=== PATIENT | male | born 1980 | race Caucasian/White ===

== ENCOUNTER 2017-01-12 12:27 | Emergency (ER) | payer SELFPAY ==
[2017-01-12] MEDS ORDERED: TORAdol 30 mg Injection IV ONE (13:00)
[2017-01-12] MEDS ORDERED: CEFAZOLIN 2 GM-D5W BAG** 2 GM/50 ML ML IV STA (13:01)
[2017-01-12] MEDS ORDERED: BACTRIM DS TABLET PO ONE ×2 (13:02→13:11)
[2017-01-12] MEDS ORDERED: Adacel Vial IM ONE ×2 (13:02→13:12)
--- NOTE | 2017-01-12 13:07 | ERPHSYRPT ---
- History of Present Illness Time Seen by Provider: 01/12/17 12:38 Source: patient Patient Subjective Stated Complaint: patient has pain and swelling on left ear as well as kneck Triage Nursing Assessment: patient alert and oriented x3, gait is steady, ambulates well, skin warm dry and intact, left ear is swollen canal swollen kneck has swollen nodule under left ear and swelling comntinues down jawline, right side of face knec kadn ear are all within normal limits, states hurts to swallow, pulses equal bilateral radius, no other abnormalities noted Physician History: CC: left ear pain Hx: 36 y/o patient of Dr Alex Baum. He had remote ear piercings left sided not used in recent past. He states he had fever and sweats last night. Awoke this AM with pain and swelling and mild drng in the left ear lobe. Not sure of any injury. No drng from canal. Pain moderate. He drove self here. No other skin lesions or swellings except a small burn left hand. Timing/Duration: today Quality: painful Severity: moderate Allergies/Adverse Reactions: No Known Drug Allergies Allergy (Unverified 10/12/13 15:08) Hx Tetanus, Diphtheria Vaccination/Date Given: Yes Hx Influenza Vaccination/Date Given: No Hx Pneumococcal Vaccination/Date Given: No Immunizations Up to Date: Yes - Review of Systems Constitutional: Fever, Chills, Malaise Eyes: No Symptoms Ears, Nose, & Throat: Ear Pain Respiratory: No Cough, No Dyspnea Cardiac: No Chest Pain Abdominal/Gastrointestinal: No Abdominal Pain Skin: Skin Lesions (left ear), No Rash Neurological: No Focal Weakness, No Parasthesia All Other Systems: Reviewed and Negative - Past Medical History Pertinent Past Medical History: No Neurological History: No Pertinent History ENT History: No Pertinent History Cardiac History: No Pertinent History Respiratory History: No Pertinent History Endocrine Medical History: No Pertinent History Musculoskeletal History: Other History: No Pertinent History Psycho-Social History: No Pertinent History - Past Surgical History Past Surgical History: Yes Neuro Surgical History: No Pertinent History Respiratory: No Pertinent History Gastrointestinal: No Pertinent History Genitourinary: No Pertinent History Male Surgical History: Vasectomy Other Surgical History: cyst removed from toe in 1995 - Social History Smoking Status: Former smoker Exposure to second hand smoke: No Drug Use: none Patient Lives Alone: No - Nursing Vital Signs Nursing Vital Signs: Initial Vital Signs Temperature 98.1 F 01/12/17 12:27 Pulse Rate 82 01/12/17 12:27 Respiratory Rate 20 01/12/17 12:27 Blood Pressure 144/82 01/12/17 12:27 O2 Sat by Pulse Oximetry 97 01/12/17 12:27 Pain Scale Pain Intensity 6 - Physical Exam General Appearance: alert Eye Exam: PERRL/EOMI Ears, Nose, Throat Exam: moist mucous membranes, other (left ear lobe is tender , red, and swollen with mild drng from prior piercings. No canal drng. Some pain with movement of pinna. There is left cervical lymphadenitis. ) Neck Exam: supple, lymphadenopathy Respiratory Exam: normal breath sounds, lungs clear Cardiovascular Exam: regular rate/rhythm, No murmur Gastrointestinal/Abdomen Exam: soft, No tenderness, No distention Male Genitalia Exam: normal genitalia Back Exam: normal inspection Extremity Exam: normal inspection, normal range of motion Neurologic Exam: alert, oriented x 3, cooperative, sensation nml, No motor deficits Skin Exam: warm, dry SpO2 Interpretation: normal SpO2: 97 Oxygen Delivery: Room Air - Course Nursing assessment & vital signs reviewed: Yes Ordered Tests: Active Orders 24 hr Category Date Time Status BMP Stat Lab 01/12/17 13:05 Completed CBC W DIFF Stat Lab 01/12/17 13:05 Completed Lactic Acid Stat Lab 01/12/17 13:13 Completed Manual Differential NC Stat Lab 01/12/17 13:05 Completed Medication Summary Discontinued Medications Generic Name Dose Route Start Last Admin Trade Name Freq PRN Reason Stop Dose Admin Diphtheria/Tetanus/Acell Pertussis 0.5 ml 01/12/17 13:02 01/12/17 13:18 Adacel Vial IM 01/12/17 13:03 0.5 ml .ONCE ONE Administration Diphtheria/Tetanus/Acell Pertussis Confirm 01/12/17 13:12 Adacel Vial Administered 01/12/17 13:13 Dose 0.5 ml IM .STK-MED ONE Cefazolin Sodium/Dextrose 2 gm in 50 mls @ 100 mls/hr 01/12/17 13:01 13:18 Cefazolin 2 Gm-D5w Bag IV 01/12/17 13:30 100 mls/hr STAT STA Administration Ketorolac Tromethamine 30 mg 01/12/17 13:00 01/12/17 13:18 Toradol 30 Mg Injection IV 01/12/17 13:01 30 mg STAT ONE Administration Ketorolac Tromethamine Confirm 01/12/17 13:11 Toradol 30 Mg Injection Administered 01/12/17 13:12 Dose 30 mg .ROUTE .STK-MED ONE Trimethoprim/Sulfamethoxazole 1 tab 01/12/17 13:02 01/12/17 13:18 Bactrim Ds Tablet PO 01/12/17 13:03 1 tab STAT ONE Administration Trimethoprim/Sulfamethoxazole Confirm 01/12/17 13:11 Bactrim Ds Tablet Administered 01/12/17 13:12 Dose 1 tab PO .STK-MED ONE Lab/Rad Data: Laboratory Result Diagrams 01/12/17 13:05 01/12/17 13:05 Laboratory Results 01/12/17 01/12/17 01/12/17 Range/Units 13:13 13:05 13:05 WBC 11.4 H (4.0-10.5) K/mm3 RBC 5.19 (4.1-5.6) M/mm3 Hgb 15.8 (12.5-18.0) gm/dl Hct 44.7 (42-50) % MCV 86.1 (78-100) fl MCH 30.4 (26-32) pg MCHC 35.3 (32-36) g/dl RDW 12.5 (11.5-14.0) % Plt Count 133 L (150-450) K/mm3 MPV 12.6 H (6-9.5) fl Sodium 140 (136-145) mEq/L Potassium 3.8 (3.5-5.1) mEq/L Chloride 103 (98-107) mEq/L Carbon Dioxide 24.7 (21-32) mEq/L Anion Gap 16.4 H (5-15) MEQ/L BUN 13 (9-20) mg/dL Creatinine 0.85 (0.55-1.30) mg/dl Estimated GFR > 60 ML/MIN Glucose 123 H (70-110) MG/DL Lactic Acid 0.8 (0.4-2.0) Calcium 9.6 (8.5-10.1) mg/dL - Departure Time of Disposition: 13:40 Departure Disposition: Home Clinical Impression: Cellulitis of left earlobe Condition: Stable Critical Care Time: No Referrals: DOCTOR,NO FAMILY [NON-STAFF PHY W/O PRIVILEGES] - Instructions: Cellulitis -- Adult, Ear Pain Additional Instructions: Warm compresses to ear lobe 4 times a day. Rx keflex. Rx bactrim. Rx motrin=ibuprofen. Return for worsening. You need to follow up with a family doctor next week. Prescriptions: Hydroxyzine HCl 1 tab PO Q6H PRN PRN #14 tablet PRN Reason: sleep Ibuprofen 600 mg PO Q6H PRN PRN #24 tablet PRN Reason: Pain Cephalexin Mh 500 mg [Keflex 500 mg] 1 cap PO QID #40 capsule Smz/Tmp Ds Tablet [Bactrim Ds Tablet] 1 udtab PO BID #20 tablet
[2017-01-12] MEDS ORDERED: TORAdol 30 mg Injection ONE (13:11)
[2017-01-12 13:18] LABS: Mean Cell Volume 86.1 fl (78-100); Mean Corpuscular Hemoglobin 30.4 pg (26-32); Mean Platelet Volume 12.6 fl (6-9.5); Platelet Count 133 K/mm3 (150-450); Red Blood Count 5.19 M/mm3 (4.1-5.6); Red Cell Distribution Width 12.5 % (11.5-14.0); White Blood Count 11.4 K/mm3 (4.0-10.5)
[2017-01-12 13:28] LABS: ANION GAP 16.4 MEQ/L (5-15); BLOOD UREA NITROGEN 13 mg/dL (9-20); CHLORIDE 103 mEq/L (98-107); Carbon Dioxide 24.7 mEq/L (21-32); Glucose 123 MG/DL (70-110); Potassium 3.8 mEq/L (3.5-5.1); SODIUM 140 mEq/L (136-145)
[2017-01-12 13:46] LABS: Platelet Estimate NORMAL (NORMAL); Total Cells Counted 100
[2017-01-12 13:50] VITALS: BP 142/96
[2017-01-12 14:06] VITALS: PULSE 76; O2SAT 98
== END 2017-01-12 14:20 | disposition home or self-care (01) ==
LOC: ED 12:27
DX: H60.12 Cellulitis of left external ear (principal); M54.2 Cervicalgia; H92.02 Otalgia, left ear
CPT/HCPCS: 36415; 80048; 83605; 85025; 90471; 90715; 96365; 96374; 99284; J0690; J1885; A9270-GY

== ENCOUNTER 2018-06-23 18:42 | Emergency (ER) | payer OTHER, MEDICAID ==
--- NOTE | 2018-06-23 19:11 | ERPHSYRPT ---
- History of Present Illness Time Seen by Provider: 06/23/18 18:59 Historian: patient Exam Limitations: no limitations Patient Subjective Stated Complaint: feels like his chest is tight and hard to breath Triage Nursing Assessment: Pt brought in to ER due to having tightness in his chest and being short of breath, tachycardic, lung sounds clear, S1-S2 sounds heard, pulses strong, afebrile, headache Physician History: Pt started c/o bifrontal headaches 4-5 days ago, it started when he was arrested. He started c/o chest pressure few hours ago, developed shortness of breath, denies productive cough, sore throat, cold symptoms, fever, chills, nausea, vomiting, however he vomited once 5 days ago, when it started. Timing/Duration: day(s) (5) Activities at Onset: none Quality: pressure Location: central Chest Pain Radiation: no radiation Severity of Pain-Max: mild Severity of Pain-Current: mild Modifying Factors: Improves With: nothing Associated Symptoms: palpitations, shortness of breath Prior Chest Pain/Cardiac Workup: no prior chest pain Nitro Today/Relief: no nitro taken today Aspirin Treatment Today: no aspirin today Allergies/Adverse Reactions: No Known Drug Allergies Allergy (Verified 06/23/18 18:59) Hx Tetanus, Diphtheria Vaccination/Date Given: Yes Hx Influenza Vaccination/Date Given: No Hx Pneumococcal Vaccination/Date Given: No - Review of Systems Constitutional: No Symptoms Eyes: No Symptoms Ears, Nose, & Throat: No Symptoms Respiratory: Dyspnea Cardiac: Chest Pain, Palpitations Abdominal/Gastrointestinal: No Symptoms Genitourinary Symptoms: No Symptoms Musculoskeletal: No Symptoms Skin: No Symptoms Neurological: Headache All Other Systems: Reviewed and Negative - Past Medical History Pertinent Past Medical History: No Neurological History: No Pertinent History ENT History: No Pertinent History Cardiac History: No Pertinent History Respiratory History: No Pertinent History Endocrine Medical History: No Pertinent History Musculoskeletal History: Other History: No Pertinent History Psycho-Social History: No Pertinent History - Past Surgical History Past Surgical History: Yes Neuro Surgical History: No Pertinent History Respiratory: No Pertinent History Gastrointestinal: No Pertinent History Genitourinary: No Pertinent History Male Surgical History: Vasectomy Other Surgical History: cyst removed from toe in 1995 - Social History Smoking Status: Never smoker Exposure to second hand smoke: No Drug Use: none Patient Lives Alone: No - Nursing Vital Signs Nursing Vital Signs: Initial Vital Signs Temperature 98.1 F 06/23/18 18:47 Pulse Rate 119 H 06/23/18 18:47 Respiratory Rate 14 06/23/18 18:47 Blood Pressure 158/101 06/23/18 18:47 O2 Sat by Pulse Oximetry 100 06/23/18 18:47 Pain Scale Pain Intensity 5 - Physical Exam General Appearance: no apparent distress Eye Exam: PERRL/EOMI, eyes nml inspection Ears, Nose, Throat Exam: normal ENT inspection, pharynx normal, moist mucous membranes Neck Exam: normal inspection, non-tender, supple, No carotid bruit, No JVD Respiratory Exam: normal breath sounds, lungs clear, airway intact, No chest tenderness, No respiratory distress Cardiovascular Exam: normal heart sounds, normal peripheral pulses, tachycardia , No murmur Gastrointestinal/Abdomen Exam: soft, normal bowel sounds, No tenderness Back Exam: normal inspection, No CVA tenderness Extremity Exam: normal inspection, No calf tenderness, No meredith's sign Neurologic Exam: alert, oriented x 3, cooperative, normal mood/affect Skin Exam: normal color, warm, dry, No rash Lymphatic Exam: No adenopathy SpO2 Interpretation: normal SpO2: 100 O2 Delivery: Room Air - Course Nursing assessment & vital signs reviewed: Yes EKG Interpreted by Me: RATE (123/min), NORMAL AXIS, NORMAL QRS, Non-specific ST Changes, Other (repeat Ek:47 PM: sinus tachycardia, unchanged.) - Radiology Exams Chest X-ray Interpretation: Interpreted by me, Negative, Other (calcified right hilar lymph nodes) - CT Exams Head CT Interpretation: Negative, Tele-radiologist Report Ordered Tests: Active Orders 24 hr Category Date Time Status [employer] STAT Care 06/23/18 19:05 Active EKG-ER Only STAT Care 06/23/18 19:04 Active EKG-ER Only STAT Care 06/23/18 21:41 Active IV Insertion STAT Care 06/23/18 19:04 Active CHEST 2 VIEWS (PA AND LAT) Stat Exams 06/23/18 19:05 Taken HEAD WITHOUT CONTRAST [CT] Stat Exams 06/23/18 19:12 Taken CBC W DIFF Stat Lab 06/23/18 19:22 Completed CK-Creatinine Phosphokinase Stat Lab 06/23/18 19:22 Completed CMP Stat Lab 06/23/18 19:22 Completed D-DIMER QUANTITATION Stat Lab 06/23/18 19:22 Completed LIPASE Stat Lab 06/23/18 19:22 Completed MAGNESIUM Stat Lab 06/23/18 19:22 Completed NT PRO BNP Stat Lab 06/23/18 19:22 Completed PROTIME WITH INR Stat Lab 06/23/18 19:22 Completed PTT Stat Lab 06/23/18 19:22 Completed TROPONIN Q3H Lab 06/23/18 19:22 Completed TROPONIN Q3H Lab 06/23/18 22:00 Completed TROPONIN Q3H Lab 06/24/18 01:15 Ordered TROPONIN Q3H Lab 06/24/18 04:15 Ordered TROPONIN Q3H Lab 06/24/18 07:15 Ordered TSH [TSH, 3RD Generation] Stat Lab 06/23/18 19:22 Completed UA W/RFX UR CULTURE Stat Lab 06/23/18 19:22 Completed Urine Triage Profile Stat Lab 06/23/18 19:22 Completed Medication Summary Discontinued Medications Generic Name Dose Route Start Last Admin Trade Name Freq PRN Reason Stop Dose Admin Diphenhydramine HCl 25 mg 06/23/18 20:35 06/23/18 20:43 Benadryl 50 Mg/Ml IV 06/23/18 20:36 25 mg STAT ONE Administration Diphenhydramine HCl Confirm 06/23/18 20:41 Benadryl 50 Mg/Ml Administered 06/23/18 20:42 Dose 50 mg .ROUTE .STK-MED ONE Sodium Chloride 1,000 mls @ 999 mls/hr 06/23/18 19:04 06/23/18 22:38 Sodium Chloride 0.9% 1000 Ml IV 06/23/18 20:04 Infused .Q1H1M STA Infusion Sodium Chloride Confirm 06/23/18 19:46 Sodium Chloride 0.9% 1000 Ml Administered 06/23/18 19:47 Dose 1,000 mls @ ud .ROUTE .STK-MED ONE Ketorolac Tromethamine 30 mg 06/23/18 20:35 06/23/18 20:42 Toradol 30 Mg Injection IV 06/23/18 20:36 30 mg STAT ONE Administration Ketorolac Tromethamine Confirm 06/23/18 20:40 Toradol 30 Mg Injection Administered 06/23/18 20:41 Dose 30 mg .ROUTE .STK-MED ONE Labetalol HCl 20 mg 06/23/18 21:43 06/23/18 21:47 Trandate 20 Mg/5 Ml Syringe IV 06/23/18 21:44 20 mg STAT ONE Administration Labetalol HCl Confirm 06/23/18 21:46 Trandate 20 Mg/5 Ml Syringe Administered 06/23/18 21:47 Dose 20 mg IV .STK-MED ONE Lorazepam 1 mg 06/23/18 19:06 06/23/18 19:47 Ativan 2 Mg/1 Ml Vial IV 06/23/18 19:07 1 mg STAT ONE Administration Lorazepam Confirm 06/23/18 19:46 Ativan 2 Mg/1 Ml Vial Administered 06/23/18 19:47 Dose 2 mg .ROUTE .STK-MED ONE Lab/Rad Data: Laboratory Result Diagrams 06/23/18 19:22 06/23/18 19:22 Laboratory Results 06/23/18 06/23/18 06/23/18 Range/Units 22:00 19:22 19:22 WBC (4.0-10.5) K/mm3 RBC (4.1-5.6) M/mm3 Hgb (12.5-18.0) gm/dl Hct (42-50) % MCV (78-100) fl MCH (26-32) pg MCHC (32-36) g/dl RDW (11.5-14.0) % Plt Count (150-450) K/mm3 MPV (6-9.5) fl Gran % (36.0-66.0) % Eos # (Auto) (0-0.5) Absolute Lymphs (auto) (1.0-4.6) Absolute Monos (auto) (0.0-1.3) Lymphocytes % (24.0-44.0) % Monocytes % (0.0-12.0) % Eosinophils % (0.00-5.0) % Basophils % (0.0-0.4) % Absolute Granulocytes (1.4-6.9) Basophils # (0-0.4) PT (8.83-12.87) SECONDS INR (0.8-3.0) APTT (24.1-36.1) SECONDS D-Dimer 222 (215-500) ng/mL Sodium (137-145) mmol/L Potassium (3.5-5.1) mmol/L Chloride (98-107) mmol/L Carbon Dioxide (22-30) mmol/L Anion Gap (5-15) MEQ/L BUN (9-20) mg/dL Creatinine (0.66-1.25) mg/dL Estimated GFR ML/MIN Glucose (74-106) mg/dL Calcium (8.4-10.2) mg/dL Magnesium (1.6-2.3) mg/dL Total Bilirubin (0.2-1.3) mg/dL AST (17-59) U/L ALT (0-50) U/L Alkaline Phosphatase (38-126) U/L Creatine Kinase (55-170) U/L Troponin I < 0.012 (0.000-0.034) ng/mL NT-Pro-B Natriuret Pep (0-450) pg/mL Serum Total Protein (6.3-8.2) g/dL Albumin (3.5-5.0) g/dL Lipase (23-300) U/L TSH 3rd Generation (0.47-4.68) mIU/L Urine Color (YELLOW) Urine Appearance (CLEAR) Urine pH (5-6) Ur Specific [place] (1.005-1.025) Urine Protein (Negative) Urine Ketones (NEGATIVE) Urine Blood (0-5) Lorenzo/ul Urine Nitrite (NEGATIVE) Urine Bilirubin (NEGATIVE) Urine Urobilinogen (0-1) mg/dL Ur Leukocyte Esterase (NEGATIVE) Urine WBC (Auto) (0-5) /HPF Urine Culture Reflexed (NO) Urine Glucose (NEGATIVE) mg/dL Urine Opiates Level NEGATIVE (NEGATIVE) Ur Methadone NEGATIVE (NEGATIVE) Urine Barbiturates NEGATIVE (NEGATIVE) Ur Phencyclidine (PCP) NEGATIVE (NEGATIVE) Urine Amphetamine NEGATIVE (NEGATIVE) U Benzodiazepine Level NEGATIVE (NEGATIVE) Urine Cocaine NEGATIVE (NEGATIVE) Urine Marijuana (THC) NEGATIVE (NEGATIVE) Slides for Path Review 06/23/18 06/23/18 06/23/18 Range/Units 19:22 19:22 19:22 WBC (4.0-10.5) K/mm3 RBC (4.1-5.6) M/mm3 Hgb (12.5-18.0) gm/dl Hct (42-50) % MCV (78-100) fl MCH (26-32) pg MCHC (32-36) g/dl RDW (11.5-14.0) % Plt Count (150-450) K/mm3 MPV (6-9.5) fl Gran % (36.0-66.0) % Eos # (Auto) (0-0.5) Absolute Lymphs (auto) (1.0-4.6) Absolute Monos (auto) (0.0-1.3) Lymphocytes % (24.0-44.0) % Monocytes % (0.0-12.0) % Eosinophils % (0.00-5.0) % Basophils % (0.0-0.4) % Absolute Granulocytes (1.4-6.9) Basophils # (0-0.4) PT (8.83-12.87) SECONDS INR (0.8-3.0) APTT (24.1-36.1) SECONDS D-Dimer (215-500) ng/mL Sodium (137-145) mmol/L Potassium (3.5-5.1) mmol/L Chloride (98-107) mmol/L Carbon Dioxide (22-30) mmol/L Anion Gap (5-15) MEQ/L BUN (9-20) mg/dL Creatinine (0.66-1.25) mg/dL Estimated GFR ML/MIN Glucose (74-106) mg/dL Calcium (8.4-10.2) mg/dL Magnesium (1.6-2.3) mg/dL Total Bilirubin (0.2-1.3) mg/dL AST (17-59) U/L ALT (0-50) U/L Alkaline Phosphatase (38-126) U/L Creatine Kinase (55-170) U/L Troponin I < 0.012 (0.000-0.034) ng/mL NT-Pro-B Natriuret Pep (0-450) pg/mL Serum Total Protein (6.3-8.2) g/dL Albumin (3.5-5.0) g/dL Lipase (23-300) U/L TSH 3rd Generation 0.873 (0.47-4.68) mIU/L Urine Color YELLOW (YELLOW) Urine Appearance CLEAR (CLEAR) Urine pH 7.0 (5-6) Ur Specific [place] 1.014 (1.005-1.025) Urine Protein NEGATIVE (Negative) Urine Ketones NEGATIVE (NEGATIVE) Urine Blood NEGATIVE (0-5) Lorenzo/ul Urine Nitrite NEGATIVE (NEGATIVE) Urine Bilirubin NEGATIVE (NEGATIVE) Urine Urobilinogen 2 (0-1) mg/dL Ur Leukocyte Esterase NEGATIVE (NEGATIVE) Urine WBC (Auto) NONE (0-5) /HPF Urine Culture Reflexed NO (NO) Urine Glucose NEGATIVE (NEGATIVE) mg/dL Urine Opiates Level (NEGATIVE) Ur Methadone (NEGATIVE) Urine Barbiturates (NEGATIVE) Ur Phencyclidine (PCP) (NEGATIVE) Urine Amphetamine (NEGATIVE) U Benzodiazepine Level (NEGATIVE) Urine Cocaine (NEGATIVE) Urine Marijuana (THC) (NEGATIVE) Slides for Path Review 06/23/18 06/23/18 06/23/18 Range/Units 19:22 19:22 19:22 WBC 9.6 (4.0-10.5) K/mm3 RBC 5.19 (4.1-5.6) M/mm3 Hgb 16.2 (12.5-18.0) gm/dl Hct 46.1 (42-50) % MCV 88.8 (78-100) fl MCH 31.2 (26-32) pg MCHC 35.1 (32-36) g/dl RDW 12.8 (11.5-14.0) % Plt Count 161 (150-450) K/mm3 MPV 12.7 H (6-9.5) fl Gran % 63.0 (36.0-66.0) % Eos # (Auto) 0.07 (0-0.5) Absolute Lymphs (auto) 2.62 (1.0-4.6) Absolute Monos (auto) 0.83 (0.0-1.3) Lymphocytes % 27.4 (24.0-44.0) % Monocytes % 8.7 (0.0-12.0) % Eosinophils % 0.7 (0.00-5.0) % Basophils % 0.2 (0.0-0.4) % Absolute Granulocytes 6.02 (1.4-6.9) Basophils # 0.02 (0-0.4) PT 11.0 (8.83-12.87) SECONDS INR 0.95 (0.8-3.0) APTT 28.8 (24.1-36.1) SECONDS D-Dimer (215-500) ng/mL Sodium 141 (137-145) mmol/L Potassium 3.8 (3.5-5.1) mmol/L Chloride 105 (98-107) mmol/L Carbon Dioxide 27 (22-30) mmol/L Anion Gap 12.5 (5-15) MEQ/L BUN 9 (9-20) mg/dL Creatinine 0.86 (0.66-1.25) mg/dL Estimated GFR > 60.0 ML/MIN Glucose 111 H (74-106) mg/dL Calcium 9.9 (8.4-10.2) mg/dL Magnesium 2.0 (1.6-2.3) mg/dL Total Bilirubin 2.20 H (0.2-1.3) mg/dL AST 23 (17-59) U/L ALT 31 (0-50) U/L Alkaline Phosphatase 47 (38-126) U/L Creatine Kinase 39 L (55-170) U/L Troponin I (0.000-0.034) ng/mL NT-Pro-B Natriuret Pep 28.3 (0-450) pg/mL Serum Total Protein 7.4 (6.3-8.2) g/dL Albumin 4.4 (3.5-5.0) g/dL Lipase 169 (23-300) U/L TSH 3rd Generation (0.47-4.68) mIU/L Urine Color (YELLOW) Urine Appearance (CLEAR) Urine pH (5-6) Ur Specific [place] (1.005-1.025) Urine Protein (Negative) Urine Ketones (NEGATIVE) Urine Blood (0-5) Lorenzo/ul Urine Nitrite (NEGATIVE) Urine Bilirubin (NEGATIVE) Urine Urobilinogen (0-1) mg/dL Ur Leukocyte Esterase (NEGATIVE) Urine WBC (Auto) (0-5) /HPF Urine Culture Reflexed (NO) Urine Glucose (NEGATIVE) mg/dL Urine Opiates Level (NEGATIVE) Ur Methadone (NEGATIVE) Urine Barbiturates (NEGATIVE) Ur Phencyclidine (PCP) (NEGATIVE) Urine Amphetamine (NEGATIVE) U Benzodiazepine Level (NEGATIVE) Urine Cocaine (NEGATIVE) Urine Marijuana (THC) (NEGATIVE) Slides for Path Review YES - Progress Progress: improved Air Movement: good Progress Note: 06/23/18 22:12 Pt feels much better, second troponin is also negative, his blood pressure is 125/90, pulse: 94/min. he states, his headache and chest pressure resolved, stable, we discussed all his findings, and he will be released back to long term given Propranolol 40 mg PO BID, to rest x 1-2 days, and follow up with his physician in 2-3 days. 06/23/18 22:16 Blood Culture(s) Obtained: No Antibiotics given: No Counseled pt/family regarding: lab results, diagnosis, need for follow-up, rad results - Departure Departure Disposition: [facility]/Jail Clinical Impression: Hypertension Qualifiers: Hypertension type: unspecified Qualified Code(s): I10 - Essential (primary) hypertension Chest pain Qualifiers: Chest pain type: unspecified Qualified Code(s): R07.9 - Chest pain, unspecified Condition: Stable Critical Care Time: No Referrals: DOCTOR,NO FAMILY [Primary Care Provider] - Instructions: High Blood Pressure in Adults, Chest Pain That Is Not Caused by the Heart (DC), Shortness of Breath (Dyspnea) (DC) Additional Instructions: Rest x 1-2 days, and follow up with your physician in 2-3 days, return if severe headaches, chest pain, shortness of breath, nausea, dizziness, blood pressure> 180/100! Prescriptions: Propranolol HCl 40 mg PO BID #30 tablet
[2018-06-23 19:41] LABS: BASOPHIL % 0.2 % (0.0-0.4); Basophil (Absolute #) 0.02 (0-0.4); Eosinophil % 0.7 % (0.00-5.0); Eosinophil (Absolute #) 0.07 (0-0.5); Granulocyte Absolute (ANC) 6.02 (1.4-6.9); Hematocrit 46.1 % (42-50); Hemoglobin 16.2 gm/dl (12.5-18.0); Lymphocyte (Absolute #) 2.62 (1.0-4.6); Lymphocytes % 27.4 % (24.0-44.0); Mean Cell Volume 88.8 fl (78-100); Mean Corpuscular Hemoglobin 31.2 pg (26-32); Mean Corpuscular Hgb Concent. 35.1 g/dl (32-36); Mean Platelet Volume 12.7 fl (6-9.5); Monocyte (Absolute #) 0.83 (0.0-1.3); Monocytes % 8.7 % (0.0-12.0); Platelet Count 161 K/mm3 (150-450); Red Blood Count 5.19 M/mm3 (4.1-5.6); Red Cell Distribution Width 12.8 % (11.5-14.0); White Blood Count 9.6 K/mm3 (4.0-10.5)
[2018-06-23] MEDS ORDERED: Sodium Chloride 0.9% 1000 ML 1,000 ML ONE (19:46)
[2018-06-23] MEDS ORDERED: Ativan 2 MG/1 ML VIAL ONE (19:46)
[2018-06-23 19:47] LABS: Appearance CLEAR (CLEAR); Bilirubin NEGATIVE (NEGATIVE); Blood NEGATIVE Ery/ul (0-5); Glucose NEGATIVE (NEGATIVE); Ketones NEGATIVE (NEGATIVE); Leukocyte Esterase NEGATIVE (NEGATIVE); Nitrite NEGATIVE (NEGATIVE); Protein,Urine Dip NEGATIVE (Negative); Specific Gravity 1.014 (1.005-1.025); Urobilinogen 2 mg/dL (0-1)
[2018-06-23] MEDS: Ativan 2 MG/1 ML VIAL IV ONE (19:47)
[2018-06-23] MEDS: Sodium Chloride 0.9% 1000 ML 1,000 ML IV STA (19:50)
[2018-06-23 19:52] LABS: INR 0.95 (0.8-3.0)
[2018-06-23 19:55] LABS: PTT 28.8 SECONDS (24.1-36.1)
[2018-06-23 20:33] LABS: Slide Review 1 YES
[2018-06-23 20:38] LABS: Amphetamine,Urine NEGATIVE (NEGATIVE); Barbiturate,Urine NEGATIVE (NEGATIVE); Benzodiazepine,Urine NEGATIVE (NEGATIVE); Cocaine,Urine NEGATIVE (NEGATIVE); Methadone,Urine NEGATIVE (NEGATIVE); Opiate,Urine NEGATIVE (NEGATIVE); PCP,Urine NEGATIVE (NEGATIVE); THC,Urine NEGATIVE (NEGATIVE)
[2018-06-23] MEDS ORDERED: TORAdol 30 mg Injection ONE (20:40)
[2018-06-23] MEDS ORDERED: BENADRYL 50 MG/ML ONE (20:41)
[2018-06-23] MEDS: TORAdol 30 mg Injection IV ONE (20:42)
[2018-06-23] MEDS: BENADRYL 50 MG/ML IV ONE (20:43)
[2018-06-23 20:45] LABS: ALBUMIN 4.4 g/dL (3.5-5.0); ALKALINE PHOSPHATASE 47 U/L (38-126); ANION GAP 12.5 MEQ/L (5-15); BLOOD UREA NITROGEN 9 mg/dL (9-20); CHLORIDE 105 mmol/L (98-107); CK-Creatinine Phosphokinase 39 U/L (55-170); Calcium 9.9 mg/dL (8.4-10.2); Carbon Dioxide 27 mmol/L (22-30); Creatinine 1 0.86 mg/dL (0.66-1.25); Glucose 111 mg/dL (74-106); LIPASE 169 U/L (23-300); NT PRO BNP 28.3 pg/mL (0-450); Potassium 3.8 mmol/L (3.5-5.1); SGOT/AST 23 U/L (17-59); SGPT/ALT 31 U/L (0-50); SODIUM 141 mmol/L (137-145); Total Protein 7.4 g/dL (6.3-8.2)
[2018-06-23] MEDS ORDERED: TRANDATE 20 MG/5 ML SYRINGE IV ONE (21:46)
[2018-06-23] MEDS: TRANDATE 20 MG/5 ML SYRINGE IV ONE (21:47)
[2018-06-23 22:20] VITALS: BP 125/90
[2018-06-23 22:59] VITALS: PULSE 92; O2SAT 98
--- NOTE | 2018-06-24 08:55 | XRAY ---
Indication: Chest pain, short of breath, and palpitations. Comparison: May 15, 2010. PA/lateral chest again demonstrates normal heart, lungs, and bony thorax.
--- NOTE | 2018-06-24 08:57 | XRAY ---
Indication: Headache. Multiple contiguous axial images obtained through the head without contrast. Comparison: None Again normal appearing brain parenchyma, ventricles, and bony calvarium. Visualized paranasal sinuses and mastoid air cells are clear. Impression: Stable normal CT head without contrast exam. CT DI 69.79
== END 2018-06-23 23:09 | disposition home or self-care (01) ==
LOC: ED 18:42
DX: I10 Essential (primary) hypertension (principal); R07.9 Chest pain, unspecified; R07.89 Other chest pain; R51 Headache
CPT/HCPCS: 36000; 36415; 70450; 71046; 80053; 80307; 81001; 82550; 83690; 83735; 83880; 84443; 84484; 85025; 85379; 85610; 85730; 93005; 93041; 96360; 96374; 96375; 99285; J1200; J1885; J2060

== ENCOUNTER 2021-05-10 20:42 | Emergency (ER) | payer MEDICAID, OTHER ==
[2021-05-10] MEDS ORDERED: TORAdol 30 mg Injection IM ONE (21:10)
[2021-05-10] MEDS ORDERED: TORAdol 30 mg Injection ONE (21:11)
--- NOTE | 2021-05-10 21:22 | ERPHSYRPT ---
- History of Present Illness Source: patient Exam Limitations: no limitations Patient Subjective Stated Complaint: pt states "I was working and walking around a pillar and felt my shoulder pull." Triage Nursing Assessment: pt ambulated into the er; pt is axo x4; c/o rt yen ulder pain; pt states 8/10 pain to rt shoulder; pt states pain is burning and shooting pain to rt shoulder; limited ROM to rt shoulder; strong rt radial pulse; good cap refill to rt hand; vital wnl Physician History: 40 yo wm w near fall at work where he grabbed railing to prevent fall injuring his R shoulder. Pt is R handed and denies other/previous injury. Chest pain/D yspnea/head injury/C,T,L-spine pain all denied. Occurred: days ago (2 days ago) Quality: constant Severity of Pain-Max: moderate Severity of Pain-Current: moderate Extremities Pain Location: shoulder: right Modifying Factors: Improves With: movement Associated Symptoms: No back pain, No chills, No chest discomfort, No chest pain, No dyspnea, No fever, No jaw pain, No nausea, No neck pain, No sweating, No short of breath, No vomiting Allergies/Adverse Reactions: No Known Drug Allergies Allergy (Verified 05/10/21 20:50) Hx Tetanus, Diphtheria Vaccination/Date Given: Yes Hx Influenza Vaccination/Date Given: No Hx Pneumococcal Vaccination/Date Given: No Travel Risk - International Travel Have you traveled outside of the country in past 3 weeks: No - Coronavirus Screening Are you exhibiting any of the following symptoms?: No Close contact with a COVID-19 positive Pt in past 14-21 Days: No - Vaccine Status Have you recieved a Covid-19 vaccination: No - Review of Systems Constitutional: No Symptoms Eyes: No Symptoms Ears, Nose, & Throat: No Symptoms Respiratory: No Symptoms Cardiac: No Symptoms Abdominal/Gastrointestinal: No Symptoms Genitourinary Symptoms: No Symptoms Skin: No Symptoms Neurological: No Symptoms Psychological: No Symptoms Endocrine: No Symptoms Hematologic/Lymphatic: No Symptoms Immunological/Allergic: No Symptoms - Past Medical History Pertinent Past Medical History: No Neurological History: No Pertinent History ENT History: No Pertinent History Cardiac History: No Pertinent History Respiratory History: No Pertinent History Endocrine Medical History: No Pertinent History Musculoskeletal History: Other History: No Pertinent History Psycho-Social History: No Pertinent History - Past Surgical History Past Surgical History: Yes Neuro Surgical History: No Pertinent History Respiratory: No Pertinent History Gastrointestinal: No Pertinent History Genitourinary: No Pertinent History Male Surgical History: Vasectomy Other Surgical History: cyst removal to tailbone - Social History Smoking Status: Never smoker Exposure to second hand smoke: No Drug Use: none Patient Lives Alone: No Significant Family History: no pertinent family hx - Nursing Vital Signs Nursing Vital Signs: Initial Vital Signs Temperature 98.5 F 05/10/21 20:51 Pulse Rate 90 05/10/21 20:51 Respiratory Rate 16 05/10/21 20:51 Blood Pressure 112/85 05/10/21 20:51 O2 Sat by Pulse Oximetry 96 05/10/21 20:51 Pain Scale Pain Intensity 8 WNL - Physical Exam General Appearance: no apparent distress Eyes, Ears, Nose, Throat Exam: normal ENT inspection, TMs normal, pharynx normal, moist mucous membranes Neck Exam: normal inspection, non-tender, supple, full range of motion, No Brudzinski, No Kernig's, No meningismus Cardiovascular/Respiratory Exam: chest non-tender, normal breath sounds, regular rate/rhythm, heart sounds normal, No murmur Abdominal Exam: non-tender, soft Back Exam: normal inspection, normal range of motion, No vertebral tenderness Shoulder Exam: bone tenderness (R shoulder TTP anteriorly and posteriorly/Pain w abduction/Mild pain w external rotation/No deformity/Good radial pulse, distal sensation, and capillary return) Elbow/Forearm Exam: normal inspection Wrist Exam: normal inspection Hand Exam: normal inspection DTR - Upper Extremity Exam: bicep (R): 2+, bicep (L): 2+ Neuro/Tendon Exam: normal sensation, normal motor functions, normal tendon functions, responds to pain Mental Status Exam: alert, oriented x 3, cooperative Skin Exam: normal color SpO2 Interpretation: normal SpO2: 96 O2 Delivery: Room Air - Course Nursing assessment & vital signs reviewed: Yes - Radiology Exams Shoulder X-ray Interpretation: Interpreted by me (R shoulder neg) Ordered Tests: Active Orders 24 hr Category Date Time Status Sling Application STAT Care 05/10/21 22:54 Completed SHOULDER Stat Exams 05/10/21 Taken Medication Summary Discontinued Medications Generic Name Dose Route Start Last Admin Trade Name Freq PRN Reason Stop Dose Admin Hydrocodone Bitart/Acetaminophen 1 tablet 05/10/21 21:50 05/10/21 21:50 Hydrocodone/Acetamin 10-325 Mg Tablet PO 05/10/21 21:51 1 tablet STAT ONE Administration Ketorolac Tromethamine 60 mg 05/10/21 21:10 05/10/21 21:13 Ketorolac Tromethamine 30 Mg/Ml Inj IM 05/10/21 21:11 60 mg STAT ONE Administration Ketorolac Tromethamine Confirm 05/10/21 21:11 Ketorolac Tromethamine 30 Mg/Ml Inj Administered 05/10/21 21:12 Dose 60 mg .ROUTE .STK-MED ONE - Progress Progress: improved Progress Note: 05/10/21 22:48 60mg IM Toradol wo improvement in pain Norco10 po x1 Sling RUE per nursing/NVI Counseled pt/family regarding: diagnosis, need for follow-up, rad results - Departure Departure Disposition: Home Clinical Impression: Rotator cuff strain Condition: Stable Critical Care Time: No Referrals: DOCTOR,NO FAMILY [Primary Care Provider] - Follow up/PCP as directed 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
[2021-05-10] MEDS ORDERED: HYDROCODONE-ACETAMIN 10-325 MG PO ONE (21:50)
[2021-05-10 22:27] VITALS: BP 130/75; PULSE 77
[2021-05-10 22:55] VITALS: O2SAT 96
--- NOTE | 2021-05-11 08:58 | XRAY ---
Indication: Pain following injury. Comparison: None 3 view right shoulder demonstrates mild AC degenerative arthropathy and incidental mediastinal calcified nodes. No other bony, articular, or soft tissue abnormalities.
== END 2021-05-10 23:05 | disposition home or self-care (01) ==
LOC: ED 20:42
DX: S46.011A Strain of muscle(s) and tendon(s) of the rotator cuff of right shoulder, initial encounter (principal); X50.0XXA Overexertion from strenuous movement or load, initial encounter; Y99.0 Civilian activity done for income or pay; Z79.891 Long term (current) use of opiate analgesic
CPT/HCPCS: 73030; 96372; 99284; J1885; A9270-GY

== ENCOUNTER 2022-01-12 19:15 | Emergency (ER) | payer MEDICAID ==
[2022-01-12] MEDS ORDERED: BENADRYL 50 MG/ML IV ONE (19:33)
[2022-01-12] MEDS ORDERED: Pepcid 20 MG VIAL IV ONE ×2 (19:33→19:36)
[2022-01-12] MEDS ORDERED: solu-MEDROL 125 MG, Sterile H2O 10 ml 2 ML IV ONE ×2 (19:33)
[2022-01-12] MEDS ORDERED: Sterile H2O 10 ml IJ ONE (19:36)
[2022-01-12] MEDS ORDERED: solu-MEDROL ONE (19:36)
[2022-01-12] MEDS ORDERED: BENADRYL 50 MG/ML ONE (19:36)
--- NOTE | 2022-01-12 19:42 | ERPHSYRPT ---
- History of Present Illness Time Seen by Provider: 01/12/22 19:19 Patient Subjective Stated Complaint: pt states "I have these bumps that come and go." Triage Nursing Assessment: pt ambulated into the er; pt is axo x4; c/o rash; pt states 6/10 pain to body; hives present to BLE, BUE, torso, and head; no SOB present; pt denies any new usage to medicine, soaps; hypertensive; tachycardic Physician History: 41 years old male presented in the ER with chief complaint of rash on extremities, torso's with wheals/hives with worsening itching for the last couple of days. Comes and goes. No throat closing sensation or difficulty breathing. Unable to recall any triggering/allergen. Timing/Duration: day(s), intermittent, gradual onset, worse Quality: burning, itchy Severity: moderate Location: torso, extremities Possible Causes: no cause identified Modifying Factors: Improves With: antihistamine Associated Symptoms: hives, rash, No difficulty breathing, No fever, No paresthesia, No swelling/mass/lumps Allergies/Adverse Reactions: No Known Drug Allergies Allergy (Verified 01/12/22 19:19) Hx Tetanus, Diphtheria Vaccination/Date Given: Yes Hx Influenza Vaccination/Date Given: No Hx Pneumococcal Vaccination/Date Given: No Travel Risk - International Travel Have you traveled outside of the country in past 3 weeks: No - Coronavirus Screening Are you exhibiting any of the following symptoms?: No Close contact with a COVID-19 positive Pt in past 14-21 Days: No - Vaccine Status Have you recieved a Covid-19 vaccination: No - Review of Systems Constitutional: No Symptoms Eyes: No Symptoms Ears, Nose, & Throat: No Symptoms Respiratory: No Symptoms Cardiac: No Symptoms Abdominal/Gastrointestinal: No Symptoms Musculoskeletal: No Symptoms Skin: Rash Neurological: No Symptoms Psychological: No Symptoms Hematologic/Lymphatic: No Symptoms Immunological/Allergic: No Symptoms - Past Medical History Pertinent Past Medical History: No Neurological History: No Pertinent History ENT History: No Pertinent History Cardiac History: No Pertinent History Respiratory History: No Pertinent History Endocrine Medical History: No Pertinent History Musculoskeletal History: Other GI Medical History: No Pertinent History History: No Pertinent History Psycho-Social History: No Pertinent History Male Reproductive Disorders: No Pertinent History - Past Surgical History Past Surgical History: Yes Neuro Surgical History: No Pertinent History Cardiac: No Pertinent History Respiratory: No Pertinent History Gastrointestinal: No Pertinent History Genitourinary: No Pertinent History Musculoskeletal: No Pertinent History Male Surgical History: Vasectomy Other Surgical History: cyst removal to tailbone - Social History Smoking Status: Never smoker Exposure to second hand smoke: No Drug Use: none Patient Lives Alone: Yes Significant Family History: no pertinent family hx - Nursing Vital Signs Nursing Vital Signs: Initial Vital Signs Temperature 97.9 F 01/12/22 19:20 Pulse Rate 108 H 01/12/22 19:20 Respiratory Rate 16 01/12/22 19:20 Blood Pressure 143/71 01/12/22 19:20 O2 Sat by Pulse Oximetry 99 01/12/22 19:20 Pain Scale Pain Intensity 6 - Physical Exam General Appearance: no apparent distress, alert Eye Exam: PERRL/EOMI Ears, Nose, Throat Exam: normal ENT inspection, moist mucous membranes Neck Exam: normal inspection, supple, full range of motion Respiratory Exam: normal breath sounds, lungs clear Cardiovascular Exam: regular rate/rhythm, normal heart sounds Back Exam: normal inspection Extremity Exam: normal inspection, normal range of motion Neurologic Exam: alert, oriented x 3, cooperative Skin Exam: rash (Multiple raised wheals/hives with itch riley on the extremities, torso. Blanchable. Nontender, no increased temperature.) SpO2 Interpretation: normal SpO2: 99 O2 Delivery: Room Air Ordered Tests: Medication Summary Discontinued Medications Generic Name Dose Route Start Last Admin Trade Name Freq PRN Reason Stop Dose Admin Methylprednisolone Sodium 0 mg 01/12/22 19:33 Succinate 125 mg/ Sterile IV 01/12/22 19:34 Water 2 ml STAT ONE Diphenhydramine HCl 50 mg 01/12/22 19:33 Diphenhydramine Hcl 50 Mg/Ml Vial IV 01/12/22 19:34 STAT ONE Famotidine 20 mg 01/12/22 19:33 Famotidine 20 Mg/1 Vial IV 01/12/22 19:34 STAT ONE - Progress Progress: improved Progress Note: 01/12/22 is given Solu-Medrol, Benadryl, Pepcid, on reevaluation it is improved. We will continue with these medications to go home. No difficulty breathing. 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 Counseled pt/family regarding: diagnosis, need for follow-up - Departure Departure Disposition: Home Clinical Impression: Allergic reaction Condition: Stable Critical Care Time: No Referrals: DOCTOR,NO FAMILY [Primary Care Provider] - Follow up/PCP as directed MENDEL ROCHE MD [ACTIVE STAFF] - Follow Up with PCP/3 days Instructions: Deneenes Additional Instructions: Take Benadryl as needed. Follow-up with primary care for reevaluation. Return to ER for any worsening of rash or if having difficulty breathing, throat closing sensation etc. Prescriptions: Diphenhydramine HCl 25 mg [Benadryl 25 mg Capsule] 25 mg PO Q4H PRN PRN #20 cap PRN Reason: Allergies Prednisone 20 mg [Deltasone 20 mg] 60 mg PO DAILY 5 Days #15 tablet Famotidine 20 mg [Pepcid 20 MG] 20 mg PO BID #10 tablet
[2022-01-12 20:33] VITALS: BP 118/58
[2022-01-12 20:47] VITALS: PULSE 105; O2SAT 97
== END 2022-01-12 20:47 | disposition home or self-care (01) ==
LOC: ED 19:15
DX: L23.9 Allergic contact dermatitis, unspecified cause (principal); Z79.52 Long term (current) use of systemic steroids; Z28.310 Unvaccinated for COVID-19
CPT/HCPCS: 36000; 96374; 96375; 99283; J1200; J2930

== ENCOUNTER 2022-08-04 17:53 | Emergency (ER) | payer MEDICAID, OTHER ==
--- NOTE | 2022-08-04 17:55 | ERPHSYRPT ---
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 His discomfort was present but it was not as bad until this morning. He can put weight on it but it hurts to do so. Patient has no other pain or injury complaints. Occurred: yesterday Severity of Pain-Max: mild (To moderate) Severity of Pain-Current: mild (To moderate) Lower Extremities Pain: knee: bilateral Modifying Factors: Improves With: movement Associated Symptoms: popping sensation, other (Can bear weight but hurts to do so) Allergies/Adverse Reactions: No Known Drug Allergies Allergy (Verified 08/04/22 18:04) Home Medications: No Reportable Medications [No Reported Medications] 08/04/22 [History] Hx Tetanus, Diphtheria Vaccination/Date Given: Yes Hx Influenza Vaccination/Date Given: No Hx Pneumococcal Vaccination/Date Given: No Travel Risk - International Travel Have you traveled outside of the country in past 3 weeks: No - Coronavirus Screening Are you exhibiting any of the following symptoms?: No Close contact with a COVID-19 positive Pt in past 14-21 Days: No - Vaccine Status Have you recieved a Covid-19 vaccination: No - Review of Systems Constitutional: No Symptoms Eyes: No Symptoms Ears, Nose, & Throat: No Symptoms Respiratory: No Symptoms Cardiac: No Symptoms Abdominal/Gastrointestinal: No Symptoms Genitourinary Symptoms: No Symptoms Musculoskeletal: Injury (Left knee) Skin: No Symptoms Neurological: No Symptoms Psychological: No Symptoms Endocrine: No Symptoms Hematologic/Lymphatic: No Symptoms Immunological/Allergic: No Symptoms All Other Systems: Reviewed and Negative - Past Medical History Pertinent Past Medical History: No Neurological History: No Pertinent History ENT History: No Pertinent History Cardiac History: No Pertinent History Respiratory History: No Pertinent History Endocrine Medical History: No Pertinent History Musculoskeletal History: Other GI Medical History: No Pertinent History History: No Pertinent History Psycho-Social History: No Pertinent History Male Reproductive Disorders: No Pertinent History - Past Surgical History Past Surgical History: Yes Neuro Surgical History: No Pertinent History Cardiac: No Pertinent History Respiratory: No Pertinent History Gastrointestinal: No Pertinent History Genitourinary: No Pertinent History Musculoskeletal: No Pertinent History Male Surgical History: Vasectomy Other Surgical History: cyst removal to tailbone - Social History Smoking Status: Never smoker Exposure to second hand smoke: No Drug Use: none Patient Lives Alone: Yes Significant Family History: no pertinent family hx - Nursing Vital Signs Nursing Vital Signs: Initial Vital Signs Temperature 97.0 F 08/04/22 18:10 Pulse Rate 70 08/04/22 18:10 Respiratory Rate 18 08/04/22 18:10 Blood Pressure 146/86 08/04/22 18:10 O2 Sat by Pulse Oximetry 97 08/04/22 18:10 Pain Scale Pain Intensity 7 - Physical Exam General Appearance: no apparent distress, alert, anxiety Eyes, Ears, Nose, Throat Exam: normal ENT inspection, moist mucous membranes Neck Exam: normal inspection, non-tender, supple, full range of motion Cardiovascular/Respiratory Exam: chest non-tender, no respiratory distress Gastrointestinal/Abdominal Exam: non-tender Back Exam: normal inspection, normal range of motion, No CVA tenderness, No vertebral tenderness Hips Exam: bilateral: non-tender, normal inspection, normal range of motion, no evidence of injury Legs Exam: bilateral leg: non-tender, normal inspection, normal range of motion, no evidence of injury Knees Exam: right knee: non-tender, soft tissue tenderness (Anterior and posterior left knee with movement), bilateral knee: normal inspection, normal range of motion, no evidence of injury Ankle Exam: bilateral ankle: non-tender, normal inspection, normal range of motion, no evidence of injury Foot Exam: bilateral foot: non-tender, normal inspection, normal range of motion, no evidence of injury Neuro/Tendon Exam: normal sensation, normal motor functions, normal tendon functions, responds to pain, no evidence tendon injury Mental Status Exam: alert, oriented x 3, cooperative Skin Exam: normal color, warm, dry SpO2 Interpretation: normal O2 Delivery: Room Air - Course Nursing assessment & vital signs reviewed: Yes Ordered Tests: Active Orders 24 hr Category Date Time Status KNEE (3 VIEWS) Stat Exams 08/04/22 18:19 Taken - Progress Progress: unchanged Progress Note: 08/04/22 18:53 X-ray of left knee was interpreted by me. There is no evidence of any acute fracture or dislocation This patient's medical issue is of low complexity the level of complexity and the work-up performed is based on review of the patient's past medical history, review of the patient's medication list, review of the patient's drug allergy list, history of present illness, and physical findings on examination. Patient underwent an x-ray of the left knee and it was interpreted by me. There is no evidence of any acute fracture or dislocation. We will place an Saleem wrap on this left knee. Patient will use an ice pack to the area 2-3 times a day for the next 48 hours. He can use Tylenol and ibuprofen for pain control. Patient is to follow-up in the [facility] orthopedic clinic on 08/06/2022 at 8 AM to 10 AM for further evaluation management if pain persist. Counseled pt/family regarding: diagnosis, need for follow-up, rad results Medical Desision Making - Diagnostic Testing Diagnostic test were ordered, analyzed, and reviewed by me: Yes Radiological Interpretation: Interpreted by me - Risk of complications Minimal Risk: Minimal risk of morbidity - Departure Departure Disposition: Home Clinical Impression: Left anterior knee pain Condition: Stable Critical Care Time: No Referrals: DOCTOR,NO FAMILY [Primary Care Provider] - Follow up/PCP as directed Additional Instructions: Ice pack to left knee 3 times a day for the next 48 hours. Use Tylenol and ibuprofen for pain control. Wear the Saleem wrap for comfort. Follow-up in the [facility] orthopedic clinic on 08/06/2022 if your symptoms persist. Be there at 8 AM in the morning. It is a walk-in clinic and you do not need to have an appointment.
[2022-08-04 19:06] VITALS: O2SAT 98
[2022-08-04 19:11] VITALS: BP 146/86; PULSE 88
--- NOTE | 2022-08-04 20:38 | XRAY ---
Indication: Left knee injury. Comparison: October 12, 2013 3 view left knee again demonstrates small nonspecific effusion. New minimal medial joint space narrowing. No other bony, articular, or soft tissue abnormalities.
== END 2022-08-04 19:12 | disposition home or self-care (01) ==
LOC: ED 17:53
DX: M25.562 Pain in left knee (principal); W19.XXXA Unspecified fall, initial encounter; Z20.828 Contact with and (suspected) exposure to other viral communicable diseases
CPT/HCPCS: 73562; 99283

== ENCOUNTER 2022-10-04 17:26 | Emergency (ER) | payer OTHER ==
--- NOTE | 2022-10-04 17:30 | ERPHSYRPT ---
- History of Present Illness Time Seen by Provider: 10/04/22 17:30 Source: patient Exam Limitations: no limitations Physician History: This is a 42-year-old white male patient who is right-handed was climbing down a ladder and started to fall. He put his arm up to break the fall and catch himself on the ladder. Ever since that happened today he has had pain in his right shoulder. Patient has no known drug allergies he takes no medications chronically. Occurred: other (Today) Quality: constant, aching Severity of Pain-Max: mild (To moderate) Severity of Pain-Current: mild Extremities Pain Location: shoulder: right Modifying Factors: Improves With: movement Associated Symptoms: none Allergies/Adverse Reactions: No Known Drug Allergies Allergy (Verified 08/04/22 18:04) Hx Tetanus, Diphtheria Vaccination/Date Given: Yes Hx Influenza Vaccination/Date Given: No Hx Pneumococcal Vaccination/Date Given: No Travel Risk - International Travel Have you traveled outside of the country in past 3 weeks: No - Coronavirus Screening Are you exhibiting any of the following symptoms?: No Close contact with a COVID-19 positive Pt in past 14-21 Days: No - Vaccine Status Have you recieved a Covid-19 vaccination: No - Review of Systems Constitutional: No Symptoms Eyes: No Symptoms Ears, Nose, & Throat: No Symptoms Respiratory: No Symptoms Cardiac: No Symptoms Abdominal/Gastrointestinal: No Symptoms Genitourinary Symptoms: No Symptoms Musculoskeletal: Injury (Right shoulder) Skin: No Symptoms Neurological: No Symptoms Psychological: No Symptoms Endocrine: No Symptoms Hematologic/Lymphatic: No Symptoms Immunological/Allergic: No Symptoms All Other Systems: Reviewed and Negative - Past Medical History Pertinent Past Medical History: No Neurological History: No Pertinent History ENT History: No Pertinent History Cardiac History: No Pertinent History Respiratory History: No Pertinent History Endocrine Medical History: No Pertinent History Musculoskeletal History: Other GI Medical History: No Pertinent History History: No Pertinent History Psycho-Social History: No Pertinent History Male Reproductive Disorders: No Pertinent History - Past Surgical History Past Surgical History: Yes Neuro Surgical History: No Pertinent History Cardiac: No Pertinent History Respiratory: No Pertinent History Gastrointestinal: No Pertinent History Genitourinary: No Pertinent History Musculoskeletal: No Pertinent History Male Surgical History: Vasectomy Other Surgical History: cyst removal to tailbone - Social History Smoking Status: Never smoker Exposure to second hand smoke: No Drug Use: none Patient Lives Alone: Yes Significant Family History: no pertinent family hx - Nursing Vital Signs Nursing Vital Signs: Initial Vital Signs Temperature 98.2 F 10/04/22 17:31 Pulse Rate 118 H 10/04/22 17:31 Respiratory Rate 20 10/04/22 17:31 Blood Pressure 148/70 10/04/22 17:31 O2 Sat by Pulse Oximetry 97 10/04/22 17:31 Pain Scale Pain Intensity 7 - Physical Exam General Appearance: no apparent distress, alert, anxiety Eyes, Ears, Nose, Throat Exam: normal ENT inspection, moist mucous membranes Neck Exam: normal inspection, non-tender, supple, full range of motion Cardiovascular/Respiratory Exam: chest non-tender, no respiratory distress Abdominal Exam: non-tender Back Exam: normal inspection, normal range of motion, No CVA tenderness, No vertebral tenderness Shoulder Exam: no evidence of injury, normal ROM, soft tissue tenderness Elbow/Forearm Exam: normal inspection, non-tender, no evidence of injury, normal ROM Wrist Exam: normal inspection, non-tender, no evidence of injury, normal ROM Hand Exam: normal inspection, non-tender, no evidence of injury, normal ROM Neuro/Tendon Exam: normal sensation, normal motor functions, normal tendon functions, responds to pain, no evidence tendon injury Mental Status Exam: alert, oriented x 3, cooperative Skin Exam: normal color, warm, dry SpO2 Interpretation: normal O2 Delivery: Room Air - Course Nursing assessment & vital signs reviewed: Yes Ordered Tests: Active Orders 24 hr Category Date Time Status SHOULDER Stat Exams 10/04/22 17:36 Taken - Progress Progress: unchanged Progress Note: 10/04/22 18:35 I interpreted the right shoulder x-ray myself. I do not appreciate any acute fracture or dislocation. This patient's medical issue is 1 of low complexity. The level of complexity and the work-up performed is based on review of the patient's past medical history, review the patient's medication list, review the patient's drug allergy list, history of present illness and physical findings on examination. This patient's work-up includes x-ray of the right shoulder. There is no acute, emergent findings on today's work-up. We will send the patient home with 2 take-home Percocet 5/325, prescription for Norflex 100 mg and a prescription for prednisone 10 mg orally 3 times a day for 4 days. Patient is to follow-up with his primary care provider on 10/05/2022 to make arranges for further evaluation and management. Counseled pt/family regarding: diagnosis, need for follow-up, rad results Medical Desision Making - Diagnostic Testing Diagnostic test were ordered, analyzed, and reviewed by me: Yes Radiological Interpretation: Interpreted by me - Risk of complications The pt has a mod risk of morbidity or mortality based on: Need for prescription drug management - Departure Departure Disposition: Home Clinical Impression: Right shoulder strain Condition: Stable Critical Care Time: No Referrals: FELIX COPELAND [Primary Care Provider] - Follow up/PCP as directed Additional Instructions: Take your medication as prescribed. Call your primary care provider on 10/05/2022 to make arrangements for follow-up appointment for further evaluation and management. May apply ice to the area 3 times a day for the next 48 hours. Prescriptions: Prednisone 10 mg [Deltasone 10 mg] 10 mg PO TID #12 tablet Orphenadrine Citrate 100 mg [Norflex 100 MG Tablet] 100 mg PO BID #10 tab
[2022-10-04 17:35] VITALS: BP 148/70; PULSE 118; O2SAT 97
[2022-10-04] MEDS ORDERED: PERCOCET TABLET 5/325MG PO STA (18:39)
[2022-10-04] MEDS ORDERED: PERCOCET TABLET 5/325MG ONE (18:42)
--- NOTE | 2022-10-05 08:50 | XRAY ---
Indication: Pain. Comparison: May 10, 2021 3 view right shoulder again demonstrates mild AC degenerative changes. No new/acute bony, articular, or soft tissue abnormalities.
== END 2022-10-04 19:02 | disposition home or self-care (01) ==
LOC: ED 17:26
DX: S46.911A Strain of unspecified muscle, fascia and tendon at shoulder and upper arm level, right arm, initial encounter (principal); X50.0XXA Overexertion from strenuous movement or load, initial encounter; W11.XXXA Fall on and from ladder, initial encounter; Z79.52 Long term (current) use of systemic steroids; Z28.310 Unvaccinated for COVID-19
CPT/HCPCS: 73030; 99282; A9270-GY

== ENCOUNTER 2022-10-24 06:56 | Emergency (ER) | payer OTHER ==
--- NOTE | 2022-10-24 07:17 | ERPHSYRPT ---
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 He has pain and swelling in his right hand. He is having difficulty fully extending and flexing his fingers. Patient has a ride home and he has no known drug allergies and he takes no narcotic medications chronically. Occurred: just prior to arrival Method of Injury: direct blow Quality: constant, aching Severity of Pain-Max: moderate Severity of Pain-Current: moderate Extremities Pain Location: hand: right (Dorsal aspect) Modifying Factors: Improves With: movement Associated Symptoms: none Allergies/Adverse Reactions: No Known Drug Allergies Allergy (Verified 10/24/22 07:26) Home Medications: No Reportable Medications [No Reported Medications] 10/24/22 [History] Hx Tetanus, Diphtheria Vaccination/Date Given: Yes Hx Influenza Vaccination/Date Given: No Hx Pneumococcal Vaccination/Date Given: No Travel Risk - International Travel Have you traveled outside of the country in past 3 weeks: No - Coronavirus Screening Are you exhibiting any of the following symptoms?: No - Vaccine Status Have you recieved a Covid-19 vaccination: No - Review of Systems Constitutional: No Symptoms Eyes: No Symptoms Ears, Nose, & Throat: No Symptoms Respiratory: No Symptoms Cardiac: No Symptoms Abdominal/Gastrointestinal: No Symptoms Genitourinary Symptoms: No Symptoms Musculoskeletal: Injury (Right hand dorsal aspect) Skin: No Symptoms Neurological: No Symptoms Psychological: No Symptoms Endocrine: No Symptoms Hematologic/Lymphatic: No Symptoms Immunological/Allergic: No Symptoms All Other Systems: Reviewed and Negative - Past Medical History Pertinent Past Medical History: No Neurological History: No Pertinent History ENT History: No Pertinent History Cardiac History: No Pertinent History Respiratory History: No Pertinent History Endocrine Medical History: No Pertinent History Musculoskeletal History: Other GI Medical History: No Pertinent History History: No Pertinent History Psycho-Social History: No Pertinent History Male Reproductive Disorders: No Pertinent History - Past Surgical History Past Surgical History: Yes Neuro Surgical History: No Pertinent History Cardiac: No Pertinent History Respiratory: No Pertinent History Gastrointestinal: No Pertinent History Genitourinary: No Pertinent History Musculoskeletal: No Pertinent History Male Surgical History: Vasectomy Other Surgical History: cyst removal to tailbone - Social History Smoking Status: Never smoker Exposure to second hand smoke: No Drug Use: none Patient Lives Alone: Yes Significant Family History: no pertinent family hx - Nursing Vital Signs Nursing Vital Signs: Initial Vital Signs Temperature 97.7 F 10/24/22 07:27 Pulse Rate 111 H 10/24/22 07:27 Respiratory Rate 18 10/24/22 07:27 Blood Pressure 118/87 10/24/22 07:27 O2 Sat by Pulse Oximetry 97 10/24/22 07:27 Pain Scale Pain Intensity 8 - Physical Exam General Appearance: no apparent distress, alert, anxiety Eyes, Ears, Nose, Throat Exam: normal ENT inspection, moist mucous membranes Neck Exam: normal inspection, non-tender, supple, full range of motion Cardiovascular/Respiratory Exam: chest non-tender, no respiratory distress Abdominal Exam: non-tender Back Exam: normal inspection, normal range of motion, No CVA tenderness, No vertebral tenderness Shoulder Exam: normal inspection, non-tender, no evidence of injury, normal ROM Elbow/Forearm Exam: normal inspection, non-tender, no evidence of injury, normal ROM Wrist Exam: normal inspection, non-tender, no evidence of injury, normal ROM Hand Exam: non-tender, no evidence of injury, normal ROM Neuro/Tendon Exam: normal sensation, normal motor functions, normal tendon functions Mental Status Exam: alert, oriented x 3, cooperative Skin Exam: normal color, warm, dry SpO2 Interpretation: normal O2 Delivery: Room Air Ordered Tests: Active Orders 24 hr Category Date Time Status HAND (MINIMUM 3 VIEWS) Stat Exams 10/24/22 07:25 Taken Medication Summary Discontinued Medications Generic Name Dose Route Start Last Admin Trade Name Edilson PRN Reason Stop Dose Admin Ibuprofen 600 mg 10/24/22 08:20 10/24/22 08:27 Ibuprofen 600 Mg Tablet PO 10/24/22 08:21 600 mg STAT ONE Administration Ibuprofen Confirm 10/24/22 08:26 Ibuprofen 600 Mg Tablet Administered 10/24/22 08:27 Dose 600 mg .ROUTE .STK-MED ONE Oxycodone/Acetaminophen 1 tab 10/24/22 08:20 10/24/22 08:27 Oxycodone Hcl/Apap 5 Mg/325 Mg Tablet PO 10/24/22 08:21 1 tab STAT STA Administration Oxycodone/Acetaminophen Confirm 10/24/22 08:26 Oxycodone Hcl/Apap 5 Mg/325 Mg Tablet Administered 10/24/22 08:27 Dose 1 tab .ROUTE .STK-MED ONE - Progress Progress: improved, pain not gone completely Progress Note: 10/24/22 08:17 X-ray right hand shows ? prox fifth metacarpal nondisplaced fracture This patient's medical issue is 1 of low complexity. The level of complexity and the work-up performed is based on review of the patient's past medical history, review of the patient's medication list, review of the patient's drug allergy list, history of present illness and physical findings on examination. The patient work-up includes x-ray of the patient's right hand. I interpreted the x-ray myself. We will provide the patient with Percocet 5/325 1 tablet here in the emergency department plus ibuprofen 600 mg orally 1 time here in the emergency department. I will wait for the final read from the radiologist. We will attempt to send the patient from the emergency department to the [facility] orthopedic [facility] for further evaluation management including casting if indicated. Counseled pt/family regarding: diagnosis, need for follow-up, rad results Medical Desision Making - Diagnostic Testing Diagnostic test were ordered, analyzed, and reviewed by me: Yes - Risk of complications Minimal Risk: Minimal risk of morbidity - Departure Departure Disposition: Home Clinical Impression: Fracture of fifth metacarpal bone of right hand Condition: Stable Critical Care Time: No Referrals: FELIX COPELAND [Primary Care Provider] - Follow up/PCP as directed Additional Instructions: Ice pack to area of tenderness. Follow-up with [facility] orthopedic clinic for further evaluation management. Forms: Ortho Referral
[2022-10-24 07:35] VITALS: RESP 18; TEMP 97.7
[2022-10-24] MEDS ORDERED: PERCOCET TABLET 5/325MG ONE (08:26)
[2022-10-24] MEDS ORDERED: MOTRIN 600 MG ONE (08:26)
[2022-10-24] MEDS: PERCOCET TABLET 5/325MG PO STA (08:27)
[2022-10-24] MEDS: MOTRIN 600 MG PO ONE (08:27)
[2022-10-24 08:33] VITALS: BP 108/79; PULSE 100; O2SAT 100
--- NOTE | 2022-10-24 09:21 | XRAY ---
Indication: Pain. Comparison: None 3 view right hand demonstrates nondisplaced vertical fracture base 5th metacarpal radial aspect with intra-articular extension. No other bony, articular, or soft tissue abnormalities.
== END 2022-10-24 08:39 | disposition home or self-care (01) ==
LOC: ED 06:56
DX: S62.306A Unspecified fracture of fifth metacarpal bone, right hand, initial encounter for closed fracture (principal); W22.03XA Walked into furniture, initial encounter; Z28.310 Unvaccinated for COVID-19
CPT/HCPCS: 73130; 99283; A9270-GY

== ENCOUNTER 2023-01-10 15:42 | Emergency (ER) | payer OTHER ==
[2023-01-10 16:04] VITALS: RESP 20; O2SAT 98
[2023-01-10] MEDS ORDERED: TORAdol 30 mg Injection IM ONE (16:16)
[2023-01-10] MEDS ORDERED: TORAdol 30 mg Injection ONE (16:18)
--- NOTE | 2023-01-10 16:48 | ERPHSYRPT ---
- History of Present Illness Time Seen by Provider: 01/10/23 15:52 Source: patient Exam Limitations: no limitations Patient Subjective Stated Complaint: Pt states "I broke the small bone in my right hand and I am afraid I re broke it." Triage Nursing Assessment: Pt presented alert and oriented X 3, skin pwd. PT ambulates with an upright steady gait, able to speak in clear full sentences. 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 Patient reports feeling a popping sound with making fist and pain is exacerbated with palpation on the dorsum of hand on the medial aspect. No tingling or numbness in the fingertips. Reports having similar symptoms last time with an fracture. Patient did apply ulnar gutter splint which she had from previous. Feeling bett er. I have obtain x-rays which are negative for acute fracture dislocation but old healed fracture reviewed by me followed by official read. Patient is given Toradol for symptomatic relief and feeling much better. Recommended continue with splint which she has on from previous fracture and outpatient orthopedics follow-up. Allergies/Adverse Reactions: No Known Drug Allergies Allergy (Verified 10/24/22 07:26) Hx Tetanus, Diphtheria Vaccination/Date Given: Yes Hx Influenza Vaccination/Date Given: No Hx Pneumococcal Vaccination/Date Given: No Immunizations Up to Date: Yes Travel Risk - International Travel Have you traveled outside of the country in past 3 weeks: No - Coronavirus Screening Are you exhibiting any of the following symptoms?: No Close contact with a COVID-19 positive Pt in past 14-21 Days: No - Vaccine Status Have you recieved a Covid-19 vaccination: No - Review of Systems Constitutional: No Symptoms Ears, Nose, & Throat: No Symptoms Respiratory: No Symptoms Cardiac: No Symptoms Abdominal/Gastrointestinal: No Symptoms Genitourinary Symptoms: No Symptoms Musculoskeletal: Injury Neurological: No Symptoms - Past Medical History Pertinent Past Medical History: No Neurological History: No Pertinent History ENT History: No Pertinent History Cardiac History: No Pertinent History Respiratory History: No Pertinent History Endocrine Medical History: No Pertinent History Musculoskeletal History: Other GI Medical History: No Pertinent History History: No Pertinent History Psycho-Social History: No Pertinent History Male Reproductive Disorders: No Pertinent History - Past Surgical History Past Surgical History: Yes Neuro Surgical History: No Pertinent History Cardiac: No Pertinent History Respiratory: No Pertinent History Gastrointestinal: No Pertinent History Genitourinary: No Pertinent History Musculoskeletal: No Pertinent History Male Surgical History: Vasectomy Other Surgical History: cyst removal to tailbone - Social History Smoking Status: Never smoker Exposure to second hand smoke: No Drug Use: none Patient Lives Alone: Yes Significant Family History: no pertinent family hx - Nursing Vital Signs Nursing Vital Signs: Initial Vital Signs Temperature 97.6 F 01/10/23 16:00 Pulse Rate 96 H 01/10/23 16:00 Respiratory Rate 20 01/10/23 16:00 Blood Pressure 141/65 01/10/23 16:00 O2 Sat by Pulse Oximetry 98 01/10/23 16:00 Pain Scale Pain Intensity 3 - Physical Exam General Appearance: no apparent distress, alert Neck Exam: normal inspection, full range of motion Cardiovascular/Respiratory Exam: normal breath sounds, regular rate/rhythm Wrist Exam: normal inspection, non-tender, no evidence of injury, normal ROM Hand Exam: bone tenderness (Fifth metatarsal carpal), limited ROM (Fifth metacarpal phalangeal joint) Neuro/Tendon Exam: normal sensation, normal motor functions Mental Status Exam: alert, oriented x 3, cooperative Skin Exam: normal color SpO2 Interpretation: normal SpO2: 98 O2 Delivery: Room Air Ordered Tests: Active Orders 24 hr Category Date Time Status HAND (MINIMUM 3 VIEWS) Stat Exams 01/10/23 16:04 Completed Medication Summary Discontinued Medications Generic Name Dose Route Start Last Admin Trade Name Edilson PRN Reason Stop Dose Admin Ketorolac Tromethamine 30 mg 01/10/23 16:16 01/10/23 16:20 Ketorolac Tromethamine 30 Mg/Ml Inj IM 01/10/23 16:17 30 mg STAT ONE Administration Ketorolac Tromethamine Confirm 01/10/23 16:18 Ketorolac Tromethamine 30 Mg/Ml Inj Administered 01/10/23 16:19 Dose 30 mg .ROUTE .STK-MED ONE - Progress Progress: improved Progress Note: 01/10/23 17:30 42 years old right-handed dominant male with history of fracture in the right hand before presented in the ER with chief complaint of sudden onset moderate to severe sharp pain 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 Patient reports feeling a popping sound with making fist and pain is exacerbated with palpation on the dorsum of hand on the medial aspect. No tingling or numbness in the fingertips. Reports having similar symptoms last time with an fracture. Patient did apply ulnar gutter splint which she had from previous. Feeling better. I have obtain x-rays which are negative for acute fracture dislocation but old healed fracture reviewed by me followed by official read. Patient is given Toradol for symptomatic relief and feeling much better. Recommended continue with splint which she has on from previous fracture and outpatient orthopedics follow-up. Counseled pt/family regarding: diagnosis, need for follow-up, rad results Medical Desision Making - Diagnostic Testing Diagnostic test were ordered, analyzed, and reviewed by me: Yes Radiological Interpretation: Reviewed by me - Risk of complications The pt has a mod risk of morbidity or mortality based on: Need for prescription drug management - Departure Departure Disposition: Home Clinical Impression: Hand sprain Condition: Stable Critical Care Time: No Referrals: FELIX COPELAND [Primary Care Provider] - Follow up/PCP as directed ORTHO - YEFRI WHITLEY NP [NON-STAFF PHY W/O PRIVILEGES] - Follow up/PCP as directed Instructions: Hand Fracture (DC), Hand Pain (DC) Additional Instructions: Take Tylenol/ibuprofen as needed. Follow-up with orthopedic for reevaluation in the morning. Intermittent ice application. Return to ER for any worsening. Keep the splint on which you have. Prescriptions: Ibuprofen 600 mg PO Q6HPRN PRN 10 Days #20 tablet PRN Reason: Pain
--- NOTE | 2023-01-10 16:55 | XRAY ---
Indication: Pain. Comparison: November 21, 2022 3 view right hand demonstrates interval healed fracture base 5th metacarpal. No other bony, articular, or soft tissue abnormalities.
[2023-01-10 17:10] VITALS: BP 136/68; PULSE 88; TEMP 97.5
== END 2023-01-10 17:45 | disposition home or self-care (01) ==
LOC: ED 15:42
DX: S63.91XA Sprain of unspecified part of right wrist and hand, initial encounter (principal); X50.9XXA Other and unspecified overexertion or strenuous movements or postures, initial encounter; Y93.H3 Activity, building and construction; Y99.0 Civilian activity done for income or pay; Z28.310 Unvaccinated for COVID-19
CPT/HCPCS: 73130; 96372; 99283; J1885

== ENCOUNTER 2023-01-17 01:08 | Emergency (ER) | payer OTHER ==
[2023-01-17 01:18] VITALS: RESP 18; TEMP 98.5
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
[2023-01-17] MEDS ORDERED: ZOFRAN ODT 4 MG PO ONE (01:50)
[2023-01-17] MEDS ORDERED: TYLENOL 325 MG PO ONE (01:51)
[2023-01-17] MEDS ORDERED: TORAdol 30 mg Injection IM ONE (01:51)
[2023-01-17] MEDS ORDERED: TYLENOL 325 MG ONE (02:07)
[2023-01-17] MEDS ORDERED: ZOFRAN ODT 4 MG ONE (02:07)
--- NOTE | 2023-01-17 03:32 | XRAY ---
CLINICAL HISTORY:trauma COMPARISON:None. TECHNIQUE:An axial non-contrast CT scan of the brain was performed from the skull base to the high parietal region. FINDINGS: Fracture of the left side of the nasal bone with surrounding mild soft tissue swelling. No intracerebral or extra axial hematoma. The visualized brain parenchyma shows a normal appearance. No focal parenchymal abnormalities are demonstrated. Craven-white matter differentiation is maintained. No midline shifts or deformity. Normal size and configuration of the cerebral ventricles. Normal CT appearance of the posterior fossa structures namely the cerebellar hemispheres, brainstem and cerebellar peduncles. The IACs are unremarkable. The cerebello-pontine angles are clear. The pituitary gland, the pineal gland, the optic chiasm is unremarkable. The osseous structures in the skull base are unremarkable. IMPRESSION: 1. Fracture of the left side of the nasal bone with surrounding mild soft tissue swelling. 2. No intracerebral or extra axial hematoma seen. Electronically Signed by: Silvino Proctor MD. (01/17/2023 02:30:12 MOBILE DEVELOPMENT MANAGER)
--- NOTE | 2023-01-17 03:32 | XRAY ---
CLINICAL HISTORY:trauma COMPARISON:None. TECHNIQUE:A non-contrast CT scan of the maxillofacial bones was performed, with sagittal and coronal multiplanar reconstruction. FINDINGS: Fracture of the left side of the nasal bone with surrounding mild soft tissue swelling. Fracture fragments are mildly displaced Mild mucosal thickening of both maxillary sinuses. No evidence of soft tissue hematoma. Normal both orbits Both temporomandibular joint appears normal. IMPRESSION: Mildly displaced fracture of the left side of the nasal bone was noted with surrounding mild soft tissue swelling. [facility] was called at [phone] at 2:28 AM RELATIONS MANAGER, 01/17/2023 and Fredrick Mcghee was informed regarding Significant Findings. Electronically Signed by: Silvino Proctor MD. (01/17/2023 02:30:44 RELATIONS MANAGER)
[2023-01-17] MEDS ORDERED: TORAdol 30 mg Injection ONE (03:48)
[2023-01-17] MEDS ORDERED: KEFLEX 500 MG PO ONE (04:00)
[2023-01-17] MEDS ORDERED: KEFLEX 500 MG ONE (04:01)
[2023-01-17 04:15] VITALS: BP 98/84; PULSE 101; O2SAT 97
== END 2023-01-17 04:16 ==
LOC: ED 01:08
DX: T76.11XA Adult physical abuse, suspected, initial encounter (principal); S02.2XXA Fracture of nasal bones, initial encounter for closed fracture; Y04.2XXA Assault by strike against or bumped into by another person, initial encounter; Z63.0 Problems in relationship with spouse or partner; R11.0 Nausea; R51.9 Headache, unspecified; Z28.310 Unvaccinated for COVID-19
CPT/HCPCS: 70450; 70486; 96372; 99284; J1885; Q0162; A9270-GY